=== PATIENT | female | born 1960 | race Caucasian/White ===

== ENCOUNTER → 2022-01-05 | Day surgery (SDC) | payer MEDICARE | LOC: MSO 08:44 | DX: H25.811 Combined forms of age-related cataract, right eye (principal) | CPT/HCPCS: 00142; J0171; J2250; V2632 ==

== ENCOUNTER 2023-02-21 10:44 | Emergency (ER) | payer MEDICARE ==
[~2023-02-21] VITALS: Ht 165.1 cm; Wt 67.3 kg
[2023-02-21 10:51] VITALS: BP 143/71
[2023-02-21] MEDS ORDERED: SYMBICORT1 AE3 IH (11:02)
[2023-02-21] MEDS ORDERED: ALBUTEROL2.5 MG/3 M IH (11:02)
[2023-02-21] MEDS ORDERED: IPRATROPIUM BROM3 M1 IH (11:02)
[2023-02-21] MEDS ORDERED: FAMOTIDINE20 MG PO (11:02)
[2023-02-21] MEDS ORDERED: SIMVASTATIN20 M1 PO (11:03)
[2023-02-21] MEDS ORDERED: VASOTEC 10M10 MG/TAB PO (11:03)
[2023-02-21] MEDS ORDERED: CELEXA 20MG20 MG/TA1 PO (11:03)
[2023-02-21] MEDS ORDERED: CEPHALEXIN500 M1 PO (11:13)
[2023-02-21] MEDS ORDERED: BACTRIM DS TAB1 EACH PO (11:13)
== END 2023-02-21 11:40 | disposition home or self-care (01) ==
LOC: ED 10:44
DX: L03.319 Cellulitis of trunk, unspecified (principal); L02.219 Cutaneous abscess of trunk, unspecified